=== PATIENT | female | born 1970 | race African-American/Black ===

== ENCOUNTER 2024-11-17 18:36 | Emergency (ER) | payer OTHER ==
[~2024-11-17] VITALS: Ht 165.1 cm; Wt 58.2 kg
[2024-11-17 18:42] VITALS: O2SAT 99
[2024-11-17] MEDS ORDERED: BO1 TP (20:56)
[2024-11-17] MEDS ORDERED: CEPH500T MT (20:56)
[2024-11-17 21:18] VITALS: BP 115/47; PULSE 84; RESP 16; TEMP 36.7; O2SAT 99
== END 2024-11-17 21:19 | disposition home or self-care (01) ==
LOC: ER 18:36
DX: M79.642 Pain in left hand (principal); M79.631 Pain in right forearm; Z98.890 Other specified postprocedural states
CPT/HCPCS: 73130; 99283